=== PATIENT | male | born 1960 | race Caucasian/White ===

== ENCOUNTER 2017-03-18 10:57 | Observation (INO) | payer MEDICARE ==
[~2017-03-18] VITALS: Ht 188 cm; Wt 105.5 kg
[~2017-03-18 10:57] MED LIST: ASPI-496 PO; CLOP75TA22 PO; GLIP10TA13; LOSA100T2; LOSA50TA2 PO; METF500T27 PO; METO25TA35 PO; OXYC-302 PO; OXYC10TA6 PO; OXYC15TA PO; OXYM15TA7 PO
[2017-03-18] MEDS ORDERED: HYDROcodone/APAP 5/325 TABLET ONE (12:16)
[2017-03-18] MEDS: HYDROcodone/APAP 5/325 TABLET PO ONE ×2 (12:20→12:30)
[2017-03-18 12:36] LABS: BLOOD UREA NITROGEN 18 mg/dL (7-18)
[2017-03-18 12:42] LABS: ACETAMINOPHEN < 2 mcg/mL (10-30)
[2017-03-18 13:44] LABS: DAU SCREEN DISCLAIMER
[2017-03-18] MEDS ORDERED: OXYcodone/APAP 5/325MG TABLET PO ONE (14:00)
[2017-03-18] MEDS ORDERED: OXYcodone/APAP 5/325MG TABLET ONE (14:25)
[2017-03-18] MEDS ORDERED: OXYC5TAB3 PO (14:30)
[2017-03-18] MEDS ORDERED: LORazepam 2 MG/ML, 1ML IM PRN (15:00)
[2017-03-18] MEDS ORDERED: ONDANSETRON ODT 4 MG PO PRN (15:00)
[2017-03-18] MEDS ORDERED: OXYcodone IR 5MG TABLET PO PRN (15:00)
[2017-03-18 15:59] VITALS: BP_SYST 169; BP_SYST 177; BP_DIAS 154; BP_DIAS 97
[2017-03-18] MEDS ORDERED: INSULIN REGULAR 100 UNITS/ML, 3ML VIAL SQ-INSULIN SCH (16:00)
[2017-03-18] MEDS ORDERED: LORazepam 1MG TABLET PO PRN (16:30)
[2017-03-18 17:00] VITALS: BP 169/97
[2017-03-18 20:01] VITALS: BP 162/83
== END 2017-03-18 19:30 ==
LOC: ED 13:48 → EDIP 14:41 → 3E 15:53
PROVIDERS: ADMIT Internal Medicine; ATTEND Internal Medicine
DX: R45.851 Suicidal ideations (principal); F33.9 Major depressive disorder, recurrent, unspecified; Z91.14 Patient's other noncompliance with medication regimen; E11.9 Type 2 diabetes mellitus without complications; F41.9 Anxiety disorder, unspecified; I10 Essential (primary) hypertension; M19.90 Unspecified osteoarthritis, unspecified site; Z91.19 Patient's noncompliance with other medical treatment and regimen
CPT/HCPCS: 36415; 80048; 80307; 80329; 82040; 82962; 85025; 96372; 99285; G0378; J1815; G0480